=== PATIENT | male | born 1935 | race Caucasian/White ===

== ENCOUNTER → 2018-06-05 | Outpatient (CLI) | payer MEDICARE ==
[~2018-06-05] MED LIST: AVODART0.5 MG; CALCIUM600 M2 PO; FOLIC ACID1 MG PO; HYDROCODONE BIT1 T11 PO; LUTEIN6 MG PO; METHOTREXATE2.5 M1 PO; PREDNISONE10 MG PO; PREDNISONE5 MG PO; PRILOSEC20 M1 PO; SINGULAIR10 MG PO; SULFAZINE EC500 MG PO; ZESTRIL,PRINIVI20 MG PO
== END | disposition home or self-care (01) ==
LOC: LAB 10:11
DX: C61 Malignant neoplasm of prostate (principal); Z85.46 Personal history of malignant neoplasm of prostate

== ENCOUNTER 2023-12-06 08:57 | Emergency (ER) | payer MEDICARE ==
[~2023-12-06] VITALS: Ht 165.1 cm; Wt 63.5 kg
[2023-12-06] MEDS ORDERED: Tdap Vaccine 0.5 ML SYR (Adult Vaccine) IM ONE (09:35)
[2023-12-06] MEDS ORDERED: CEPHALEXIN500 M1 PO (11:19)
== END 2023-12-06 11:28 | disposition home or self-care (01) ==
LOC: ED 08:57
DX: S61.211A Laceration without foreign body of left index finger without damage to nail, initial encounter (principal); J45.909 Unspecified asthma, uncomplicated; K21.9 Gastro-esophageal reflux disease without esophagitis; Z91.013 Allergy to seafood; Z91.041 Radiographic dye allergy status; Z88.8 Allergy status to other drugs, medicaments and biological substances; Z98.890 Other specified postprocedural states; Z79.899 Other long term (current) drug therapy; X58.XXXA Exposure to other specified factors, initial encounter; Y93.89 Activity, other specified; Y92.009 Unspecified place in unspecified non-institutional (private) residence as the place of occurrence of the external cause; Y99.8 Other external cause status